=== PATIENT | male | born 1965 | race Caucasian/White ===

== ENCOUNTER 2022-11-22 05:14 | Observation (INO) ==
--- NOTE | 2022-11-10 14:53 | PAT Medication Instructions ---
Medication Instructions Date of Service November 10, 2022 Home Medications Circulation, Vein Support 1 tab PO QAM Essential 1 1 tab PO QAM aspirin 81 mg tablet,delayed release 81 mg PO QAM hydrochlorothiazide 12.5 mg tablet 12.5 mg PO QAM phytosterol 500 mg capsule 500 mg PO QAM STOP taking 2 weeks before surgery Circulation, Vein Support 1 tab PO QAM Essential 1 1 tab PO QAM phytosterol 500 mg capsule 500 mg PO QAM DO NOT take the morning of surgery hydrochlorothiazide 12.5 mg tablet 12.5 mg PO QAM Take morning of surgery With a small sip of water, OTHERWISE NOTHING TO EAT OR DRINK AFTER MIDNIGHT: aspirin 81 mg tablet,delayed release 81 mg PO QAM (unless surgeon directed otherwise) Other Notes If you have any questions please call us at [phone] or [phone] or [phone] or [phone]
--- NOTE | 2022-11-11 10:18 | Anesthesiology Consultation ---
Date of Service November 11, 2022 Assessment & Plan (1) Encounter for pre-operative examination: - Case discussed with Dr. Billy who advised patient is acceptable to proceed with surgery as scheduled not needing further evaluation or testing from his standpoint. - Outpatient joint assessment: Patient is currently scheduled for inpatient pathway. If re-evaluated pending system levels during current pandemic/surgeon requests outpatient pathway, patient is not recommended candidate for outpatient joint program from anesthesia standpoint. Chart Review Chart Review: Acceptable Risk for Surgery and Patient seen in Pre Admission Testing Teaching & Discussion Pre-Anesthesia Teaching/Discussion Notes: Instructed NPO after midnight before surgery, except medications with 15 cc of water. Medication instructions provided according to the PAT guidelines. History Surgery Operation Date: 11/22/22 08:50 Proposed Procedures p Right Total Hip Arthroplasty - Norman Orozco MD Height/Weight Height: 5 ft 8 in Weight: 96.162 kg Allergies Allergy/AdvReac Type Severity Reaction Status Date / Time No Known Allergies Allergy Verified 11/10/22 11:47 Medications Home Medications Medication Instructions Recorded Confirmed Last Taken Circulation, Vein Support 1 tab PO QAM 11/10/22 11/10/22 Unknown Essential 1 1 tab PO QAM 11/10/22 11/10/22 Unknown aspirin 81 mg tablet,delayed 81 mg PO QAM 11/10/22 11/10/22 Unknown release hydrochlorothiazide 12.5 mg tablet 12.5 mg PO QAM 11/10/22 11/10/22 Unknown phytosterol 500 mg capsule 500 mg PO QAM 11/10/22 11/10/22 Unknown Past Medical History Medical History Bradycardia typically runs 48-50 History of kidney stones last 2021 Hx of blood clots hx of 10/2021 left lower arm--superficial--was on blood thinners for brief period (60days)--currently only on aspirin Polycythemia vera reason for aspirin--[facility]--stable, states has not needed phlebotomies in the past several visits--next check is after scheduled surgery Sleep apnea pt states after gastric bypass cpap was d/c by provider Patient denies h/o stroke, seizures, heart attack, heart failure, DM, HTN or blood transfusions. Exercise / Class Metabolic Activity II 4-5 Yardwork/Stairs/Walk up hill (denies chest discomfort or shortness of breath with 1 FOS) Past Family History Family History Other No family history of adverse response to anesthesia Past Surgical History Surgical History History of bilateral carpal tunnel release History of cholecystectomy History of colonoscopy History of gastric restrictive surgery gastric sleeve, 2011 History of tooth extraction History of wisdom tooth extraction Past Anesthesia History No Hx of Anesthesia Complications and No Family Hx of Anesthesia Complications History of PONV No Hx of PONV and No Hx of Motion Sickness Social History Smoking Status: Never smoker Do You Dip or Chew Tobacco: No Hx Alcohol Use: No Hx Substance Use: No substance use type: does not use Review of Systems Patient denies chest pain, shortness of breath, dyspnea on exertion, reflux, fever, chills, cough, wheezing, dizziness, lightheadedness, presyncope or palpitations. Physical Exam Vital Signs Vitals BP 150/91 P 45 TEMP 98.3 SP02 98% on RA RESP 18 Physical Full cervical extension range of motion without pain TMD 3.5 finger breadths Mallampati Score 2 Dentition: intact, denies chipped or loose teeth, caps/crowns, implants or bridges Lungs: normal respiratory effort. Good air movement, clear throughout to auscultation, no adventitious breath sounds Cardiac: bradycardic, regular rhythm, no murmurs noted Carotid arteries: negative bruit bilat Lab Results Anesthesia Preop Results Results Anesthesia Widget: Na 139 mmol/L (136-145) 11/11/22 K 3.7 mmol/L (3.5-5.1) 11/11/22 Cl 109 mmol/L (98-107) H 11/11/22 CO2 24 mmol/L (21-32) 11/11/22 BUN 21 mg/dl (6-23) 11/11/22 Creat 0.75 mg/dl (0.6-1.4) 11/11/22 Glucose Level 89 mg/dl (70-99(Fasting)) 11/11/22 PT 10.8 Seconds (9.0-12.0) 11/11/22 PTT 28.0 Seconds (21.0-31.0) 11/11/22 INR 1.0 (0.9-1.1) 11/11/22 Blood Type O Positive 11/11/22 Antibody Screen NEGATIVE 11/11/22 Testing Laboratory Results 11/04/2022 WBC: 9.9 H/H: 14/43 PLATELETS: 265 Electrocardiogram Date: 11/11/22 Sinus bradycardia with occasional PVCs, rate 48 bpm Chest X-Ray Date: 11/11/22 No active disease in the chest Stress Test Date: 04/21/22 Exercise METS 10 MPHR 85% COVID-19 Risk Screen Screening Information COVID-19 Screen Date: 11/11/22 Exposure 21 Days Family/Household +COVID Last 21 Days: No Exposure 10 Days Any COVID Exposure Last 10 Days: No Symptoms Last 10 Days Experienced COVID Sx Last 10 Days: No + COVID 0-90 Days COVID + in Last 0-90 Days: No
[2022-11-22] MEDS ORDERED: LR 500ML BOLUS, THEN 15ML/HR IV SCH (06:00)
[2022-11-22] MEDS ORDERED: ceFAZolin 2000MG 2,000 MG/15 ML SYR IV SCH (06:00)
[2022-11-22] MEDS ORDERED: Scopolamine 1 MG TDSY TD SCH (06:00)
[2022-11-22] MEDS ORDERED: METOCLOPRAMIDE HCL 10 MG TABLET PO SCH (06:00)
[2022-11-22] MEDS ORDERED: ACETAMINOPHEN 500 MG TAB PO SCH (06:00)
[2022-11-22] MEDS ORDERED: TRANEXAMIC ACID 1,000 MG **IV Intra-op IV SCH (06:00)
[2022-11-22] MEDS ORDERED: CeleBREX 200 MG CAP PO SCH (06:00)
[2022-11-22] MEDS ORDERED: dexAMETHasone**PF** 10 MG/ML VIAL IV SCH (06:00)
[2022-11-22] MEDS ORDERED: LR 60ML/HR IV SCH (06:00)
[2022-11-22] MEDS ORDERED: FAMOTIDINE 20 MG TAB PO SCH (06:00)
[2022-11-22] MEDS ORDERED: BUPIVACAINE 0.5 % 5 MG/1 ML PF 10ML VIAL ONE (06:18)
[2022-11-22] MEDS ORDERED: ONDANSETRON INJ 2 MG/ML 2 ML VIAL ONE (06:36)
[2022-11-22] MEDS ORDERED: LIDOCAINE 2% 2 ML VIAL/AMP(20MG/ML) INFIL ONE (06:36)
[2022-11-22] MEDS ORDERED: PROPOFOL IV EMULSION 10 MG/ML 20 ML VIAL IV ONE ×2 (06:36→06:39)
[2022-11-22] MEDS ORDERED: MIDAZOLAM HCL 1 MG/ML 2ML VIAL ONE (06:37)
[2022-11-22] MEDS ORDERED: MoRPHine SULFATE PF 1 MG/ML 10 ML AMP/VIAL ONE (06:39)
[2022-11-22] MEDS ORDERED: PROMETHAZINE HCL 6.25 MG in SODIUM CHLORIDE 0.9% 50 ML IV PRN (06:44)
[2022-11-22] MEDS ORDERED: NALOXONE HCL 0.4 MG/1 ML VIAL/CARP IV PRN ×2 (06:44→09:24)
[2022-11-22] MEDS ORDERED: diphenhydrAMINE 50 MG/ML VIAL IV PRN (06:44)
[2022-11-22] MEDS ORDERED: MoRPHine SULFATE PF 1 MG/ML 10 ML AMP/VIAL INT SPINAL ONE (06:44)
[2022-11-22] MEDS ORDERED: ATROPINE SULFATE 0.1 MG/ML 10ML SYR IV PRN (06:44)
[2022-11-22] MEDS ORDERED: NALOXONE HCL 1 MG in SODIUM CHLORIDE 0.9% 1000ML 1,000 ML IV PRN (06:44)
[2022-11-22] MEDS ORDERED: LACTATED RINGER'S 500 ML IV PRN (06:44)
[2022-11-22] MEDS ORDERED: NALOXONE HCL 0.08 MG in SYRINGE 1.8 ML IV PRN (06:44)
[2022-11-22] MEDS ORDERED: ePHEDrine sulfate 50 MG/ML AMP IV PRN ×2 (06:44)
[2022-11-22] MEDS ORDERED: NALBUPHINE HCL INJ 10 MG/ML AMP IV PRN (06:44)
[2022-11-22] MEDS ORDERED: HYDROmorphone INJ 0.5 MG/0.5 ML SYR IV PRN (06:44)
[2022-11-22] MEDS ORDERED: ONDANSETRON INJ 2 MG/ML 2 ML VIAL IV PRN ×2 (06:44)
[2022-11-22] MEDS ORDERED: DC INTRASPINAL MORPHINE SCH (06:45)
[2022-11-22] MEDS ORDERED: NO NARCOTICS OR SEDATIVES SCH (06:45)
[2022-11-22] MEDS ORDERED: SODIUM CHLORIDE 0.9% 1000ML 1,000 ML IV SCH (06:45)
[2022-11-22] MEDS ORDERED: BUPIVACAINE/EPINEPHRINE 0.5% MPF 1:200,000 30 ML VIAL ONE (06:56)
--- NOTE | 2022-11-22 06:56 | History & Physical Bridge Note ---
Date of Service November 22, 2022 History & Physical Bridge Note I have examined the patient, reviewed the History & Physical and in the interval since the performance of the History & Physical I have noted the following changes of clinical significance: no changes noted
[2022-11-22] MEDS ORDERED: KETAMINE 50 MG/5 ML SYRINGE ONE (07:13)
[2022-11-22] MEDS ORDERED: GLYCOPYRROLATE 0.2 MG/ML VIAL ONE (07:24)
--- NOTE | 2022-11-22 08:38 | Operative Report ---
PG Post Operative Report Pre & Post Diagnosis Operation Date: 11/22/22 07:00 Pre-Op Diagnosis: Right Degenerative Joint Disease Hip Post-Op Diagnosis: Right Degenerative Joint Disease Hip I identified the patient and participated in the time-out.: Yes Procedure Operation Date: 11/22/22 07:00 Actual Procedures p Right Total Hip Arthroplasty(Right) - Norman Orozco MD Surgeon Norman Orozco MD [employer] Dryer Mechanic Bennie Mayo PA-C Estimated Blood Loss 200 Findings Consistent with Post-Op Diagnosis Operative findings were advanced right hip DJD. He had pretty extensive grade 4 [id number] disease of the femoral head with some eburnation. Small hip joint effusion. Not much in the way of osteophyte formation. Specimens Right femoral head sent for pathology Anesthesia Type Spinal MAC Complications none Disposition Accompanied Patient To Recovery: No Indications Patient is a 57-year-old gentleman said about a 5-year history of increasing right hip pain discomfort describes gotten worse over time he has been through extensive conservative treatment including oral oral medicines as well as an intra-articular injection which provided some temporary relief only. His symptoms continued to progress and limit his activities. X-rays show definitely advanced hip arthritis. Not a lot of osteophyte formation. He elected proceed with total hip arthroplasty. Description of Procedure Operative implants consist of: 1. Biomet G7 size 52 mm acetabular shell. 2. 6.5 cancellous acetabular screws 1 at 35 mm in length and 1 to 25 mm length. 3. [place] hole eliminator. 4. Highly cross-linked polyethylene liner with a 52 mm outer diameter and 36 mm inner diameter. 5. DePuy Karaya size 12 KLA femoral stem. 6. +1.5/36 mm ceramic articular ball. The patient was taken to the operating room, identified, and placed on the operating table supine position. All contact areas were appropriately padded. IV antibiotics tried by anesthesia team. A spinal anesthetic had been implemented holding area. Patient then placed in the left lateral decubitus position. An axillary roll was placed. Stulberg hip positioner was used for positioning. The right hip and leg were then prepped and draped in the usual sterile fashion. A posterolateral approach to the right hip was then performed to a curvilinear incision centered over the greater trochanter. Sharp dissection was carried through subcutaneous tissue down to the IT band gluteal fascia the IT band gluteal fascia incised longitudinally in line with skin incision. The underlying greater bursa was excised. The piriformis and external rotators along with the posterior hip joint capsule were then released and the posterior aspect of the hip as a single layer. Great care was taken throughout the proc edure protect the sciatic nerve at all times. Hip was internally rotated and dislocated. A femoral neck osteotomy cut was made with a Final Cut about 12 mm above the lesser trochanter. Femoral head was removed and sent for pathology. The femur was retracted anteriorly. Attention drawn the acetabulum. The acetabular labrum was excised. The pulmonary fat was excised. Sequential reaming the acetabular was then performed again with size 45 and progressing up to a 51. I reamed a little bit with a 52 reamer and then placed a 52 mm cup in about 40 degrees of lateral opening and 20 degrees of anteversion. It was fixed with two 6.5 cancellous acetabular screws. Trial liner was placed. Attention drawn the femur. The proximal femur was entered with cookie-cutter followed by canal finder. I broached beginning with a size 8 and progressed up to a 12. Got excellent fit of 12. We trialed the hip and the +5 articular ball provide full stability but was just a bit tight in extension. Therefore we elect to use a +1.5 articular ball. This seemed to recreate leg lengths equally and appropriate soft tissue tension. It was stable with full extension and external rotation and flexion to 90 degrees internal rotation over [address] I elect to place these implants. All trial implants were removed. An apex eliminator was placed. Highly cross- linked polyethylene liner was placed. I DePuy KLA size 12 femoral stem was impacted in position. A +1.5/36 mm ceramic articular ball was placed. Hip was located once again found to be stable. Attention drawn to closing. The wound was irrigated coconuts pulsatile lavage solution. I did inject locally with 60 cc of half percent Marcaine with epinephrine. Posterior capsule and external rotators were then repaired through drill holes in the posterior trochanter with #2 Tycron suture. The IT band gluteal fascia then closed #1 PDS suture running fashion for subcutaneous tissues then closed with 2 layers the deep layer #1 Vicryl suture and subcutaneous tissues with 2-0 Dexon suture in a buried interrupted fashion. Skin was closed with skin rosa. Leg was then cleaned and dried and a sterile dressing was Xeroform, 4 x 4's, ABD pad, foam tape was applied. The patient then transferred to the recovery room in stable condition. Patient tolerated procedure well and there were no complications. Bennie Mayo, my physician under water assistant, was present for the entire procedure. His assistance was essential and required for appropriate patient positioning, prepping and draping, surgical exposure, performing the technical details of the operation, placement the implants, closure of the wound, and placement of the sterile bandage. I attest to the content of the Intraoperative Record and any orders documented therein. Any exceptions are noted below.
[2022-11-22] MEDS ORDERED: ALUMINUM/MAGNESIUM SUSP 30 ML UDC PO PRN (09:24)
[2022-11-22] MEDS ORDERED: [UNRECOGNIZED DRUG - OTHER] PO SCH (09:24)
[2022-11-22] MEDS ORDERED: MAGNESIUM HYDROXIDE SUSP 30 ML UDC PO PRN (09:24)
[2022-11-22] MEDS ORDERED: [UNRECOGNIZED DRUG - OTHER] PO SCH (09:24)
[2022-11-22] MEDS ORDERED: bisacodyL 10 MG SUPP PR PRN (09:24)
[2022-11-22] MEDS ORDERED: [UNRECOGNIZED DRUG - OTHER] PO SCH (09:24)
[2022-11-22] MEDS ORDERED: SENNA 8.6 MG TAB PO SCH ×2 (09:24→21:00)
[2022-11-22] MEDS: SODIUM CHLORIDE 0.9% 1000ML 1,000 ML IV SCH ×2 (10:23→19:27)
[2022-11-22] MEDS: hydroCHLOROthiazide 25 MG TAB PO SCH (10:31)
[2022-11-22] MEDS: DOCUSATE SODIUM 100 MG CAP PO SCH ×2 (10:31→20:59)
[2022-11-22] MEDS: ASPIRIN 81 MG ECTAB PO SCH ×2 (10:32→20:59)
[2022-11-22] MEDS: TAMSULOSIN HCL 0.4 MG CAP PO SCH (10:32)
[2022-11-22] MEDS: MULTIVITAMIN TAB PO SCH (10:32)
--- NOTE | 2022-11-22 10:44 | XRay Report ---
XR hip 1V RT w pelvis CLINICAL HISTORY: Postoperative evaluation. COMPARISON: Right hip radiographs November 08, 2022. FINDINGS: Alignment of the total right hip arthroplasty is anatomic. There is no periprosthetic frac ture. Skin rosa are noted. There are no unexpected radiopaque foreign bodies. IMPRESSION: Expected findings following total right hip arthroplasty. ACT 112: Negative or not required by law. Electronically signed by: David Alexandra M.D. 11/22/2022 10:43 AM
[2022-11-22] MEDS: KETOROLAC 30 MG/ML VIAL IV SCH ×2 (12:19→17:51)
--- NOTE | 2022-11-22 13:36 | Anesthesiology Progress Note ---
Date of Service November 22, 2022 Anesthesia Post Procedure Vital Signs Vital Signs: Temp Pulse Pulse Resp BP Pulse Ox Pulse Ox 11/22/22 09:10 16 94 11/22/22 12:16 36.3 C L 47 L 16 131/82 98 11/22/22 11:10 36.5 C 47 L 16 120/70 96 11/22/22 09:40 36.3 C L 53 L 16 121/77 97 11/22/22 09:10 36.6 C 52 L 16 129/76 94 11/22/22 09:10 94 11/22/22 10:21 36.6 C 50 L 17 127/68 98 11/22/22 08:55 36.5 C 60 22 134/79 96 11/22/22 08:45 61 22 142/72 H 96 11/22/22 08:35 67 18 134/79 95 11/22/22 08:29 36.4 C L 71 16 131/66 95 11/22/22 05:40 36.7 C 55 L 18 173/104 H 97 O2 Del Method O2 Del Method O2 Flow Rate 11/22/22 09:10 11/22/22 12:16 Nasal Cannula 2 11/22/22 11:10 Nasal Cannula 2 11/22/22 09:40 Nasal Cannula 2 11/22/22 09:10 Room Air 11/22/22 09:10 Room Air 11/22/22 10:21 Nasal Cannula 2 11/22/22 08:55 Nasal Cannula 3 11/22/22 08:45 Nasal Cannula 3 11/22/22 08:35 Oxymask 6 11/22/22 08:29 Oxymask 6 11/22/22 05:40 Room Air Pain Intensity Right Hip: Pain Intensity: 2 Transfer of Care Handoff Completed per policy Notes Mental Status: alert / awake / arousable and participated in evaluation Patient Amnestic to Procedure: Yes Nausea / Vomiting: adequately controlled Pain: adequately controlled Airway Patency, RR, SpO2: stable & adequate BP & HR: stable & adequate Hydration State: stable & adequate Neuraxial Anesthesia: was administered and sensory block is resolving Anesthetic Complications: no major complications apparent and Pt Satisfied with anesthetic care
[2022-11-22] MEDS ORDERED: TRANEXAMIC ACID / 0.7% NACL 1,000 MG/100 ML BAG IV SCH (14:30)
[2022-11-22] MEDS: ACETAMINOPHEN 500 MG TAB PO SCH ×2 (14:59→20:59)
[2022-11-22] MEDS: ceFAZolin 2000MG 2,000 MG/15 ML SYR IV SCH ×2 (15:13→22:40)
[2022-11-22] MEDS: Scopolamine CHECK PATCH PLACEMENT SCH (16:10)
[2022-11-23] MEDS ORDERED: ONDANSETRON INJ 2 MG/ML 2 ML VIAL IV PRN (00:45)
[2022-11-23] MEDS ORDERED: METOCLOPRAMIDE HCL INJ 5 MG/ML 2 ML VIAL IV PRN (00:45)
[2022-11-23] MEDS ORDERED: diphenhydrAMINE Capsule 25 MG CAP PO PRN (00:45)
[2022-11-23] MEDS ORDERED: HYDROmorphone INJ 0.5 MG/0.5 ML SYR IV PRN (00:45)
[2022-11-23] MEDS ORDERED: traMADol HCL 50 MG TABLET PO PRN (00:45)
[2022-11-23] MEDS: KETOROLAC 30 MG/ML VIAL IV SCH ×2 (00:54→05:33)
[2022-11-23] MEDS: Scopolamine CHECK PATCH PLACEMENT SCH ×2 (00:54→07:59)
[2022-11-23 06:10] LABS: Hematocrit (blood only) 41.1 % (42.0-52.0); Hemoglobin 13.4 g/dl (14.0-18.0); Mean Corpuscular Hgb Conc 32.6 g/dL (32.0-36.0); Mean Corpuscular Volume 79.8 fL (80.0-100.0); Mean Platelet Volume 10.1 fL (9.4-12.4); Platelet Count 278 K/uL (130-400); RDW Standard Deviation 45.3 fL (36.4-46.3); Red Blood Count 5.15 M/uL (4.70-6.10); White Blood Count 24.22 K/ul (4.8-10.8)
[2022-11-23 06:26] LABS: BUN Creatinine Ratio 20.5 (10-20); Calcium 9.2 mg/dl (8.6-10.3); Creatinine Clr Calc Pharmacy 117.2 ml/min; Est GFR (African American) 114.5 ml/min; Est GFR (Non-African American) 98.8 ml/min; Potassium 3.9 mmol/L (3.5-5.1)
[2022-11-23 06:46] LABS: Basophils # (auto) 0.05 K/uL (0-0.2); Basophils % (auto) 0.2 %; Immature Granulocytes # (auto) 0.14 K/uL (0.01-0.20); Immature Granulocytes % (auto) 0.6 %; Lymphocytes # (auto) 1.21 K/uL (1.2-3.4); Monocytes # (auto) 1.86 K/uL (0.11-0.59); Monocytes % (auto) 7.7 %; Neutrophils # (auto) 20.96 K/uL (1.40-6.50); Neutrophils % (auto) 86.5 %; Polychromasia 1+
[2022-11-23] MEDS ORDERED: dexAMETHasone 10 MG in SYRINGE 0 ML IV SCH (08:00)
[2022-11-23] MEDS: ASPIRIN 81 MG ECTAB PO SCH (08:34)
[2022-11-23] MEDS: hydroCHLOROthiazide 25 MG TAB PO SCH (08:34)
[2022-11-23] MEDS: ACETAMINOPHEN 500 MG TAB PO SCH (08:35)
[2022-11-23] MEDS: TAMSULOSIN HCL 0.4 MG CAP PO SCH (08:35)
[2022-11-23] MEDS: MULTIVITAMIN TAB PO SCH (08:35)
[2022-11-23] MEDS: DOCUSATE SODIUM 100 MG CAP PO SCH (08:37)
--- NOTE | 2022-11-23 09:20 | Orthopedic Progress Note ---
Date of Service November 23, 2022 Assessment & Plan (1) Status post total hip replacement, right: 57-year-old gentleman postop day 1 from right shoulder placed doing well. Dislocated. His pain is controlled pretty is neurologically intact he is hoping to go home. Plan: 1. DVT prophylaxis glucide teds SCDs and aspirin twice a day. 2. Pain control doing well with current pain regimen. 3. PT OT. Weight-bear as tolerated. Right total hip protocol. 4. Disposition plan to discharge home with some home health likely later today after therapy Subjective . 57-year-old gentleman postop day 1 from a right total hip placement. He is doing well. Some pain and discomfort but very manageable. Had a good evening last night. No chest pain or shortness of breath. Not feeling dizzy or lightheaded. Hoping to go home today. Review of Systems All systems reviewed & are unremarkable except as noted in HPI & below. Physical Exam . Physical nation was a pleasant middle-age male. Sitting up in his bedside chair looks comfortable. Examination the right hip reveals dressing clean dry and intact. Leg lengths are equal. Hips are located. He is neurologically intact he can dorsiflex and plantarflex his foot appropriately. Respiratory normal respiratory effort, lungs clear to auscultation Cardiovascular RRR, no murmur, no edema Gastrointestinal (Abdomen) normal bowel sounds, soft, nontender, no hepatosplenomegaly Results & Data Results & Data Laboratory Results . Hemoglobin is 13.4. Mackert is 41.1. Electrolytes are stable. Diagnostic Findings . PG Care Time/CCT Total # of Minutes Spent Total Time Spent with Patient: Total time spent is greater than 50% in coordination of care (as documented) at patient's floor/unit and/or counseling patient: Coding Level of Care Code 75448 Post Operative Follow-Up Diagnoses Status post total hip replacement, right Z96.641
== END 2022-11-23 11:10 | disposition home health service (06) ==
LOC: ASU 05:14 → 3E 05:14